=== PATIENT | male | born 1945 | race Caucasian/White ===

== ENCOUNTER → 2017-03-06 | Outpatient (CLI) | payer MEDICARE, BC ==
[~2017-03-06] MED LIST: ALLEGRA180 MG PO; ASPIRIN81 M2 PO; ATORVASTATIN CA10 MG PO; CARVEDILOL3.125 MG PO; FENOFIBRATE160 MG PO; GLUCOSAMINE CHO1 TA1 PO; LISINOPRIL10 MG PO; MULTI VITAMIN1 EACH PO; NASACORT AQ16.5 G1; TRICOR PO
--- NOTE | ~2017-03-06 | MR32 ---
[facility] A Service of [facility] & [facility] / [facility] RADIOLOGY TEXT RESULTS PATIENT: TERRANCE MELÉNDEZ LOCATION: [facility] : 41 UNIT #: [id number] AGE: [address]: DANIS MARQUEZ SEX: M ORDER DR: [id number] [facility] [address] [place], [place] [address] [id number] O MR#: [id number] Acc #: [id number] NAME: TERRANCE MELÉNDEZ : 1945 SEX: M STUDY DATE/TIME: 03/06/2017 9:32 UNIT: [facility] ROOM: STUDY DESCRIPTION: MR Cervical Wo Contrast Attending Physician: Danis Marquez Aprn Referring Physician: Danis Marquez Aprn Ordering Physician: Danis Marquez Aprn Primary Care Physician: Alexis Sparks M.D. MRI CENTER REPORT This report is preliminary unless electronic signature is present. EXAM MRI of the cervical spine without contrast dated 03/06/2017 COMPARISON Plain film cervical spine dated 02/24/2017 HISTORY 2-month history of neck pain and popping with grinding while turning head TECHNIQUE Multisequence multiplanar imaging of the cervical spine without contrast. FINDINGS Disc osteophyte complex are noted at multiple levels. No destructive bony mass is seen. There is mild edema noted in the right lateral body extending towards the pedicles and the facet joints at C4 and C5. Severe right C4-5 facet hypertrophic changes are present with bone edema. Cord demonstrates normal expected course, caliber and signal. Imaged posterior fossa demonstrates parenchymal volume loss which is probably age-appropriate. No significant cerebellar tonsillar herniation is seen. Pre and paravertebral soft tissues do not demonstrate any significant abnormality. C2-3: [id number] central protrusion. It is superimposed on mild disc bulge without any significant neural foraminal narrowing or canal stenosis. C3-4: Concentric disc bulge with small central protrusion. Severe left facet hypertrophic change is noted with severe left neural foraminal narrowing. Borderline size to mild canal stenosis is seen. C4-5: Concentric disc with superimposed central protrusion. Mild to moderate right and mild left facet hypertrophic changes are noted with superior right neural foraminal narrowing with relatively patent inferior STS. [facility] A Service of [facility] & [facility] RADIOLOGY TEXT RESULTS PATIENT: TERRANCE MELÉNDEZ LOCATION: [facility] : 43 UNIT #: [id number] AGE: [address]: DANIS MARQUEZ SEX: M ORDER DR: aspect. Borderline size to mild canal stenosis is seen. C5-6: Disc osteophyte complex with borderline-sized canal. Superior bilateral neural foraminal narrowing is noted but there is relative patency in the inferior aspect. C6-7: Concentric disc bulge with small central protrusion. Mild bilateral facet hypertrophic changes noted with no significant neural foraminal narrowing. Borderline size to mild canal stenosis. C7-T1: No significant abnormality. IMPRESSION 1. Severe right C4-5 facet hypertrophic changes noted with edema associated with articulating surface and extending to the right C4,5 pedicles. 2. Degenerative disc disease is seen at multiple levels as described above. 3. Borderline size to mild canal stenosis is noted from C3-4 to C6-7, relatively worse at C5-6. 4. Cord is unremarkable. Dictated by... Andrzej Maritnez M.D. THIS IS AN ELECTRONICALLY VERIFIED REPORT Andrzej Martinez M.D. at 03/09/2017 10:49 PM CPR/to TD: 03/08/2017 16:38 JOB #: [id number] MRI CENTER REPORT Page 1 of 1 COPY
== END | disposition home or self-care (01) ==
LOC: CMRI 08:41
DX: M54.2 Cervicalgia (principal); M50.21 Other cervical disc displacement, high cervical region; M50.221 Other cervical disc displacement at C4-C5 level; M99.81 Other biomechanical lesions of cervical region; M48.02 Spinal stenosis, cervical region; M50.223 Other cervical disc displacement at C6-C7 level
CPT/HCPCS: 72141